=== PATIENT | male | born 1975 | race Two or more races ===

== ENCOUNTER 2021-05-12 14:25 | Inpatient (IN) | payer OTHER ==
[2021-05-12 15:18] LABS: Basophils # (A) 0.1 k/uL (0-0.2); Basophils % (A) 1 %; Eosinophils # (A) 0.2 k/uL (0-0.7); Eosinophils % (A) 2 %; HCT 44.7 % (39.0-53.0); HGB 15.5 gm/dL (13.0-17.5); Lymphocytes # (A) 1.8 k/uL (1.0-4.8); Lymphocytes % (A) 20 %; MCH 31.9 pg (25.0-35.0); MCHC 34.6 g/dL (31.0-37.0); MCV 92.2 fL (80.0-100.0); Mean Platelet Volume 8.8; Monocytes # (A) 0.4 k/uL (0-1.0); Monocytes % (A) 5 %; Neutrophils # (A) 6.3 k/uL (1.3-7.7); Neutrophils % (A) 72 %; Platelet Count 223 k/uL (150-450); RBC 4.85 m/uL (4.30-5.90); RDW 12.2 % (11.5-15.5); WBC 8.8 k/uL (3.8-10.6)
[2021-05-12 15:24] LABS: ALT 55 U/L (4-49); AST 36 U/L (17-59); African American GFR (CKD) >90 (>60 ml/min/1.73 sqM); Albumin 4.9 g/dL (3.5-5.0); Alkaline Phosphatase 92 U/L (38-126); Amylase 55 U/L (30-110); Anion Gap 12 mmol/L; Blood Urea Nitrogen 13 mg/dL (9-20); Calcium 9.9 mg/dL (8.4-10.2); Carbon Dioxide 25 mmol/L (22-30); Chloride 107 mmol/L (98-107); Glucose 95 mg/dL (74-99); Lipase 56 U/L (23-300); Non-African American GFR(CKD) >90 (>60 ml/min/1.73 sqM); Potassium 3.9 mmol/L (3.5-5.1); Sodium 144 mmol/L (137-145); Total Bilirubin 0.5 mg/dL (0.2-1.3); Total Protein 8.5 g/dL (6.3-8.2)
--- NOTE | 2021-05-12 15:34 | XR ---
EXAMINATION TYPE: XR KUB DATE OF EXAM: 05/12/2021 COMPARISON: None HISTORY: Abdomen pain TECHNIQUE: Upright abdomen FINDINGS: No free air is evident. No suspicious differential air-fluid levels are present. Nonspecifi c bowel gas is present. Small amount of bowel gas within the ascending colon region. Psoas margins are normal. Organomegaly is not evident. Phleboliths are present. IMPRESSION: 1. Nonspecific abdomen
[2021-05-12] MEDS ORDERED: KETOROLAC 15 MG/ML 1 ML VIAL IVP STA (16:50)
[2021-05-12] MEDS ORDERED: HYDROmorphone 0.5 MG/0.5 ML SYRINGE IVP STA (16:50)
[2021-05-12] MEDS ORDERED: SODIUM CHLORIDE 0.9% 1,000 ML IV ONE (16:50)
--- NOTE | 2021-05-12 17:44 | ED ---
Abdominal Pain HPI - General Chief Complaint: Abdominal Pain Stated Complaint: chest pain & hernia Time Seen by Provider: 05/12/21 16:25 Source: patient, RN notes reviewed Mode of arrival: wheelchair Limitations: no limitations - History of Present Illness Initial Comments: This a 46-year-old male presents emergency from chief complaint abdominal pain, right groin pain. Patient states that he's had pain for a while but states that he an ultrasound ordered by his PCP and told that there was no hernia or issues. He states pain is now. Again worse appointment was unbearable today. Patient states he had a bowel movement today no significant melena hematochezia constipation or diarrhea no dysuria no hematuria no prior abdominal surgeries. He states her some swelling right lower quadrant. - Related Data Home Medications Medication Instructions Recorded Confirmed Allopurinol [Zyloprim] 100 mg PO DAILY 05/12/21 05/12/21 Allergies Allergy/AdvReac Type Severity Reaction Status Date / Time No Known Allergies Allergy Verified 05/12/21 17:12 Review of Systems ROS Statement: Those systems with pertinent positive or pertinent negative responses have been documented in the HPI. ROS Other: All systems not noted in ROS Statement are negative. Past Medical History Past Medical History: No Reported History History of Any Multi-Drug Resistant Organisms: None Reported Past Surgical History: No Surgical Hx Reported Smoking Status: Never smoker Past Alcohol Use History: None Reported Past Drug Use History: None Reported General Exam Limitations: no limitations General appearance: alert, in no apparent distress Head exam: Present: atraumatic, normocephalic, normal inspection Eye exam: Present: normal appearance, PERRL, EOMI. Absent: scleral icterus, conjunctival injection, periorbital swelling ENT exam: Present: normal exam, normal oropharynx, mucous membranes moist, TM's normal bilaterally Neck exam: Present: normal inspection, full ROM. Absent: tenderness, meningis mus, lymphadenopathy Respiratory exam: Present: normal lung sounds bilaterally. Absent: respiratory distress, wheezes, rales, rhonchi, stridor Cardiovascular Exam: Present: regular rate, normal rhythm, normal heart sounds. Absent: systolic murmur, diastolic murmur, rubs, gallop, clicks Course Vital Signs 05/12/21 05/12/21 05/12/21 14:27 17:18 18:26 Temperature 97.9 F Pulse Rate 105 H 78 71 Respiratory 20 18 20 Rate Blood Pressure 191/151 171/117 149/105 O2 Sat by Pulse 99 98 96 Oximetry Medical Decision Making - Medical Decision Making 46 present for right-sided abdominal pain. Patient's found to have incarcerated inguinal hernia and partial mechanical small bowel obstruction on CT I was able to reduce the hernia though it is sliding. Patient remains to be in some discomfort. I did discuss the case with Dr. Delgado accepts admission overnight for observation. - Lab Data Result diagrams: 05/12/21 14:48 05/12/21 14:48 Lab Results 05/12/21 05/12/21 05/12/21 Range/Units 14:48 14:48 14:48 WBC 8.8 (3.8-10.6) k/uL RBC 4.85 (4.30-5.90) m/uL Hgb 15.5 (13.0-17.5) gm/dL Hct 44.7 (39.0-53.0) % MCV 92.2 (80.0-100.0) fL MCH 31.9 (25.0-35.0) pg MCHC 34.6 (31.0-37.0) g/dL RDW 12.2 (11.5-15.5) % Plt Count 223 (150-450) k/uL MPV 8.8 Neutrophils % 72 % Lymphocytes % 20 % Monocytes % 5 % Eosinophils % 2 % Basophils % 1 % Neutrophils # 6.3 (1.3-7.7) k/uL Lymphocytes # 1.8 (1.0-4.8) k/uL Monocytes # 0.4 (0-1.0) k/uL Eosinophils # 0.2 (0-0.7) k/uL Basophils # 0.1 (0-0.2) k/uL Sodium 144 (137-145) mmol/L Potassium 3.9 (3.5-5.1) mmol/L Chloride 107 (98-107) mmol/L Carbon Dioxide 25 (22-30) mmol/L Anion Gap 12 mmol/L BUN 13 (9-20) mg/dL Creatinine 0.99 (0.66-1.25) mg/dL Est GFR (CKD-EPI)AfAm >90 (>60 ml/min/1.73 sqM) Est GFR (CKD-EPI)NonAf >90 (>60 ml/min/1.73 sqM) Glucose 95 (74-99) mg/dL Calcium 9.9 (8.4-10.2) mg/dL Total Bilirubin 0.5 (0.2-1.3) mg/dL AST 36 (17-59) U/L ALT 55 H (4-49) U/L Alkaline Phosphatase 92 (38-126) U/L Troponin I <0.012 (0.000-0.034) ng/mL Total Protein 8.5 H (6.3-8.2) g/dL Albumin 4.9 (3.5-5.0) g/dL Amylase 55 (30-110) U/L Lipase 56 (23-300) U/L Disposition Clinical Impression: Partial obstruction of small intestine, Right inguinal hernia Disposition: ADMITTED IP TO THIS HOSP Condition: Fair Referrals: Kwame Lares MD [Primary Care Provider] - 1-2 days
--- NOTE | 2021-05-12 18:06 | CT ---
EXAMINATION TYPE: CT abdomen pelvis w con DATE OF EXAM: 05/12/2021 COMPARISON: None HISTORY: Right sided groin pain. CT DLP: 1891.8 mGycm Automated exposure control for dose reduction was used. CONTRAST: Performed with IV Contrast, patient injected with 100ml mL of Isovue 300. Images obtained from the diaphragm to the floor the pelvis with IV contrast. The lung bases are clear. There is no pleural effusion. There is some fatty infiltration of the liver . Heart size is normal. There is no pericardial effusion. Gallbladder is intact. Spleen is intact. There is no pancreatic mass. The stomach appears normal. There is no adrenal mass. Kidneys show satisfactory contrast opacification. There is no hydronephrosi s. Delayed images show normal renal excretion. There is 2 cm cortical cyst medial left kidney. There is no retroperitoneal adenopathy. There is large right inguinal hernia that contains small bow el. There is mild dilation of the small bowel in the right lower quadrant up to 3.2 cm. Hernia is prashanth ewhat incarcerated. Appendix is posterior and appears normal. Bladder distends smoothly. There is no free fluid in the pelvis. There is no evidence of a pelvic mass. There is no mesenteric edema. There is no ascites or free air. Lumbar vertebra have normal alignment. There is no compression fracture. Bony pelvis is intact. Hip joints are intact. IMPRESSION: Incarcerated right inguinal hernia with partial mechanical distal small bowel obstruction.
[2021-05-12] MEDS ORDERED: HYDROmorphone 1 MG/ML 1 ML SYRINGE IVP PRN (18:47)
[2021-05-12] MEDS ORDERED: NALOXONE 0.4 MG/ML 1 ML VIAL IV PRN (18:47)
[2021-05-12] MEDS ORDERED: HYDROmorphone 0.5 MG/0.5 ML SYRINGE IVP PRN (18:47)
[2021-05-12] MEDS ORDERED: ONDANSETRON 4 MG/2 ML VIAL IVP PRN (18:47)
[2021-05-12 19:22] LABS: Appearance,Urine Clear (Clear); Bilirubin,Urine Negative (Negative); Blood,Urine Negative (Negative); Color,Urine Yellow; Glucose,Urine (UA) Negative (Negative); Ketones,Urine Trace (Negative); Leukocyte Esterase,Urine Negative (Negative); Nitrite,Urine Negative (Negative); PH, Urine 5.5 (5.0-8.0); Protein,Urine Negative (Negative); Urobilinogen,Urine <2.0 mg/dL (<2.0)
[2021-05-12 19:24] LABS: Specific Gravity,Urine 1.046 (1.001-1.035)
[2021-05-12] MEDS ORDERED: hydrALAZINE HCL 20 MG/ML 1 ML VIAL IVP STA (20:01)
[2021-05-12] MEDS: SODIUM CHLORIDE 0.9% 1,000 ML IV SCH (20:53)
[2021-05-12] MEDS ORDERED: ENALAPRILAT 1.25 MG/ML 1 ML VIAL IVP STA (21:28)
[2021-05-13] MEDS: PANTOPRAZOLE 40 MG/10 ML VIAL IV SCH (07:23)
[2021-05-13] MEDS: SODIUM CHLORIDE 0.9% 1,000 ML IV SCH (07:23)
--- NOTE | 2021-05-13 09:41 | P.GSHP ---
History of Present Illness H&P Date: 05/13/21 CHIEF COMPLAINT: Abdominal pain HISTORY OF PRESENT ILLNESS: This is a 46-year-old male who has been dealing with right groin pain for about a week. He started to have mid abdominal pain yesterday. The pain became significantly worse and brought into the hospital for further evaluation and treatment. He also has been coughing which she feels may have contributed to the worsening of his hernia. Patient had a computed tomography scan of abdomen and pelvis completed showing evidence of an incar cerated right inguinal hernia with mechanical distal small bowel obstruction. Hernia reduced in the ER. Patient had significant improvement in his pain after reduction. He denies any nausea or vomiting. Denies any difficulty with bowel movements. He has been having flatus. Denies any fever chills or sweats. Denies any cardiac history. Denies any prior abdominal surgeries. He did have elevated blood pressure on admission and required a dose of IV Vasotec. He was having significant pain at that time. PAST MEDICAL HISTORY: See list. PAST SURGICAL HISTORY: See list. MEDICATIONS: See list. ALLERGIES: See list. SOCIAL HISTORY: No illicit drug use. REVIEW OF SYSTEMS: CONSTITUTIONAL: Denies fever or chills. HEENT: Denies blurred vision, vision changes, or eye pain. Denies hemoptysis CARDIOVASCULAR: Denies chest pain or pressure. RESPIRATORY: No shortness of breath. GASTROINTESTINAL: See HPI for pertinent findings HEMATOLOGIC: Denies bleeding disorders. GENITOURINARY: Denies any blood in urine or increased urinary frequency. SKIN: Denies pruitis. Denies rash. PHYSICAL EXAM: VITAL SIGNS: Reviewed GENERAL: Well-developed in no acute distress. HEENT: No sclera icterus. Extraocular movements grossly intact. Moist buccal mucosa. Head is atraumatic, normocephalic. No nasal drainage. ABDOMEN: Soft. Nondistended. Unable to appreciate right inguinal hernia. H ernia have been reduced in ER. Patient does have minimal tenderness with palpation in the area above the right inguinal canal NEUROLOGIC: Alert and oriented. Cranial nerves II through XII grossly intact. LABORATORY DATA: WBC 8.8 Hgb 15.5 platelets 223 Sodium 144 potassium 3.9 creatinine 0.99 COVID-19 not detected IMAGING: Computed tomography scan abdomen and pelvis incarcerated right inguinal hernia with partial mechanical distal small bowel obstruction ASSESSMENT: 1. Right incarcerated inguinal hernia with partial mechanical small bowel obstruction. Hernia reduced in ER. PLAN: -Patient scheduled for open inguinal hernia repair today with Dr. Delgado -Keep patient nothing by mouth -Continue IV fluids -Continue pain medication as needed Physician Nail Welter note has been reviewed by physician. Signing provider agrees with the documented findings, assessment, and plan of care. Past Medical History Past Medical History: No Reported History History of Any Multi-Drug Resistant Organisms: None Reported Past Surgical History: No Surgical Hx Reported Smoking Status: Never smoker Past Alcohol Use History: None Reported Past Drug Use History: None Reported - Past Family History Mother Family Medical History: Hypertension Father History Unknown: Yes Additional Family Medical History / Comment(s): None. Medications and Allergies Home Medications Medication Instructions Recorded Confirmed Type Allopurinol [Zyloprim] 100 mg PO DAILY 05/12/21 05/12/21 History Allergies Allergy/AdvReac Type Severity Reaction Status Date / Time shellfish derived [Shellfish] AdvReac Swelling Verified 05/13/21 05:46 Surgical - Exam Vital Signs Temp Pulse Resp BP Pulse Ox 97.9 F 105 H 20 191/151 99 05/12/21 14:27 05/12/21 14:27 05/12/21 14:27 05/12/21 14:27 05/12/21 14:27 Results - Labs 05/12/21 14:48 05/12/21 14:48 Abnormal Lab Results - Last 24 Hours (Table) 05/12/21 05/12/21 Range/Units 14:48 18:53 ALT 55 H (4-49) U/L Total Protein 8.5 H (6.3-8.2) g/dL Ur Specific [place] 1.046 H (1.001-1.035) Urine Ketones Trace H (Negative) Diabetes panel 05/12/21 Range/Units 14:48 Sodium 144 (137-145) mmol/L Potassium 3.9 (3.5-5.1) mmol/L Chloride 107 (98-107) mmol/L Carbon Dioxide 25 (22-30) mmol/L BUN 13 (9-20) mg/dL Creatinine 0.99 (0.66-1.25) mg/dL Glucose 95 (74-99) mg/dL Calcium 9.9 (8.4-10.2) mg/dL AST 36 (17-59) U/L ALT 55 H (4-49) U/L Alkaline Phosphatase 92 (38-126) U/L Total Protein 8.5 H (6.3-8.2) g/dL Albumin 4.9 (3.5-5.0) g/dL Calcium panel 05/12/21 Range/Units 14:48 Calcium 9.9 (8.4-10.2) mg/dL Albumin 4.9 (3.5-5.0) g/dL Pituitary panel 05/12/21 Range/Units 14:48 Sodium 144 (137-145) mmol/L Potassium 3.9 (3.5-5.1) mmol/L Chloride 107 (98-107) mmol/L Carbon Dioxide 25 (22-30) mmol/L BUN 13 (9-20) mg/dL Creatinine 0.99 (0.66-1.25) mg/dL Glucose 95 (74-99) mg/dL Calcium 9.9 (8.4-10.2) mg/dL Adrenal panel 05/12/21 Range/Units 14:48 Sodium 144 (137-145) mmol/L Potassium 3.9 (3.5-5.1) mmol/L Chloride 107 (98-107) mmol/L Carbon Dioxide 25 (22-30) mmol/L BUN 13 (9-20) mg/dL Creatinine 0.99 (0.66-1.25) mg/dL Glucose 95 (74-99) mg/dL Calcium 9.9 (8.4-10.2) mg/dL Total Bilirubin 0.5 (0.2-1.3) mg/dL AST 36 (17-59) U/L ALT 55 H (4-49) U/L Alkaline Phosphatase 92 (38-126) U/L Total Protein 8.5 H (6.3-8.2) g/dL Albumin 4.9 (3.5-5.0) g/dL
[2021-05-13] MEDS ORDERED: IV FLUID CONTINUATION 1,000 ML IV ONE (12:53)
[2021-05-13] MEDS ORDERED: HEPARIN SODIUM,PORCINE/PF 5,000 UNIT/0.5 ML SYRINGE SQ ONE (13:12)
[2021-05-13] MEDS ORDERED: DEXAMETHASONE SOD PHOSPHATE 4 MG/ML 1 ML VIAL IV ONE (13:15)
[2021-05-13] MEDS ORDERED: ONDANSETRON 4 MG/2 ML VIAL IVP ONE (13:15)
[2021-05-13] MEDS ORDERED: MIDAZOLAM 2 MG/2 ML VIAL IV ONE (13:21)
--- NOTE | 2021-05-13 13:38 | P.ANPRN ---
Procedure Note - Anesthesia - Nerve Block Performed Right Fascia Iliaca Single Time Out Performed: Yes Date of Procedure: 05/13/21 Procedure Start Time: : Procedure Stop Time: : Location of Patient: PreOp Indication: Acute Post-Operative Pain, Requested by Surgeon Sedation Type: Sedate with meaningful contact maintained Preparation: Sterile Prep, Sterile Dressing Position: Prone Catheter: None Needle Types: Facet Needle Gauge: 20 Ultrasound used to visualize needle placement: Yes Ultrasound used to observe medication spread: Yes Injectate: 0.5% Ropivacaine (see comment for volume) (30 ml + decadron 4 mg) Blood Aspirated: No Pain Paresthesia on Injection Noted: No Resistance on Injection: Normal Image Stored and Saved: Yes Events: Uneventful and Well Tolerated
[2021-05-13] MEDS ORDERED: HEPARIN SODIUM,PORCINE 5,000 UNIT/ML 1 ML VIAL SQ ONE (14:05)
[2021-05-13] MEDS ORDERED: ceFAZolin 3 GM in SODIUM CHLORIDE 0.9% 100 ML IVPB ONE (14:15)
[2021-05-13] MEDS ORDERED: fentaNYL (PF) 50 MCG/ML 2 ML AMP ONE (14:32)
[2021-05-13] MEDS ORDERED: DEXAMETHASONE SOD PHOSPHATE 4 MG/ML 1 ML VIAL ONE (14:32)
[2021-05-13] MEDS ORDERED: MIDAZOLAM 2 MG/2 ML VIAL ONE (14:32)
[2021-05-13] MEDS ORDERED: GLYCOPYRROLATE 0.2 MG/ML 2 ML VIAL ONE (14:32)
[2021-05-13] MEDS ORDERED: HYDROmorphone (PF) 1 MG/ML ONE (14:32)
[2021-05-13] MEDS ORDERED: ROPIVACAINE 5 MG/ML 30 ML VIAL ONE (14:32)
[2021-05-13] MEDS ORDERED: LIDOCAINE 1% INJ 10MG/ML (20 ML MDV) ONE (14:32)
[2021-05-13] MEDS ORDERED: ROCURONIUM 10 MG/ML (5 ML VIAL) IV ONE (14:32)
[2021-05-13] MEDS ORDERED: SODIUM CHLORIDE 0.9% 50 ML with ceFAZolin 2,000 MG IV ONE ×2 (14:32)
[2021-05-13] MEDS ORDERED: NEOSTIGMINE 1 MG/ML 10 ML VIAL ONE (14:32)
[2021-05-13] MEDS ORDERED: SUCCINYLCHOLINE CHLORIDE 100 MG/5 ML SYR IV ONE (14:32)
[2021-05-13] MEDS ORDERED: PROPOFOL 10 MG/ML 20 ML VIAL IV ONE (14:32)
[2021-05-13] MEDS ORDERED: BUPIVACAIN-EPI 0.25%-1:200,000 30 ML VIAL SQ ONE (14:53)
--- NOTE | 2021-05-13 15:29 | P.OP ---
Date of Procedure: 05/13/21 Preoperative Diagnosis: Incarcerated right inguinal hernia Postoperative Diagnosis: Incarcerated right inguinal hernia Procedure(s) Performed: (Incarcerated right inguinal hernia Excision of cord lipoma Anesthesia: VIBHA Surgeon: Harpreet Delgado Estimated Blood Loss (ml): 10 Pathology: other (Cord lipoma) Condition: stable Disposition: PACU Description of Procedure: DESCRIPTION OF PROCEDURE: The patient was placed in the supine position after receiving adequate anesthesia. Patient's right groin groin was prepped and draped in the usual sterile fashion. A standard hernia incision was made and the subcutaneous tissues were divided with electrocautery. The fascia of the external oblique was exposed. A juan the fascia was made with #15 blade. The fascia was then opened with pair of Metzenbaum scissors. A Weitlaner retractor was placed in the wound and the cord structures were grasped and dissected free from the inguinal canal. A rubber Mica drain was placed around the cord structures. The cord lipoma was dissected free and sent to pathology. The hernial sac was seen on the anterior-medial portion of the cord and this was dissected free from the cord. The hernia sac was then invaginated to the peritoneal cavity. Using blunt finger dissection, the preperitoneal space was dissected and then the Prolene hernial mesh plug was placed into the prepared space. The inferior leaf was expanded. The superior leaf was secured to the pubic tubercle using 2-0 Prolene suture. The lateral portion of the superior leaf was incised and cords tied and secured to the transversalis fascia using 2-0 Prolene suture. Fascia of the external oblique was then closed using #0 Vicryl suture. The Mica drain was removed. The Scarpas fascia was then closed with 3-0 Vicryl suture and skin was closed with frank. The patient tolerated the procedure well.
[2021-05-13] MEDS ORDERED: SODIUM CHLORIDE 0.9% 1,000 ML IV ONE (15:52)
[2021-05-13] MEDS ORDERED: HYDROcodone/APAP 5-325MG 1 EACH TAB PO PRN (15:59)
[2021-05-14] MEDS: SODIUM CHLORIDE 0.9% 1,000 ML IV SCH ×2 (00:20→12:17)
[2021-05-14 03:30] VITALS: TEMP 98.4
[2021-05-14] MEDS: PANTOPRAZOLE 40 MG/10 ML VIAL IV SCH (07:35)
[2021-05-14] MEDS ORDERED: ENOXAPARIN 40 MG/0.4 ML SYRINGE SQ SCH (09:00)
[2021-05-14 09:42] VITALS: BP 133/84; PULSE 80; RESP 18
--- NOTE | 2021-05-14 11:13 | P.DS ---
Providers Date of admission: 05/12/21 18:48 Expected date of discharge: 05/14/21 Attending physician: Harpreet Delgado Primary care physician: Kwame [facility] Course: Discharge diagnosis 1. Incarcerated right inguinal hernia causing mechanical distal small bowel obstruction status post incarcerated right inguinal hernia repair and excision of cord lipoma Hospital course This is a 46-year-old male who has been dealing with right groin pain for about a week. He started to have mid abdominal pain yesterday. The pain became significantly worse and brought into the hospital for further evaluation and treatment. He also has been coughing which she feels may have contributed to the worsening of his hernia. Patient had a computed tomography scan of abdomen and pelvis completed showing evidence of an incarcerated right inguinal hernia with mechanical distal small bowel obstruction. Hernia reduced in the ER. Patient had significant improvement in his pain after reduction. Patient is status post incarcerated right inguinal hernia repair and excision of cord lipoma. He tolerated surgery well. Pain is controlled. He is tolerating diet. He is up and ambulating. He is having flatus. Denies any difficult to urinating. He is afebrile. He is stable for discharge. Please refer to chart for any further details. Physician Consulting Manager note has been reviewed by physician. Signing provider agrees with the documented findings, assessment, and plan of care. Patient Condition at Discharge: Stable Plan - Discharge Summary Discharge Rx Participant: Yes New Discharge Prescriptions: New HYDROcodone/APAP 5-325MG [Worth 5-325] 1 tab PO Q6HR PRN 3 Days #12 tab PRN Reason: Pain Docusate [Colace] 100 mg PO BID #30 capsule Continue Allopurinol [Zyloprim] 100 mg PO DAILY Discharge Medication List Allopurinol [Zyloprim] 100 mg PO DAILY 05/12/21 [History] Docusate [Colace] 100 mg PO BID #30 capsule 05/14/21 [Rx] HYDROcodone/APAP 5-325MG [Worth 5-325] 1 tab PO Q6HR PRN 3 Days #12 tab 05/14/21 [Rx] Follow up Appointment(s)/Referral(s): Aurora Morin NPC [REFERRING] - 1-2 Days Harpreet Delgado MD [STAFF PHYSICIAN] - 1 Week Patient Instructions/Handouts: Inguinal Hernia Repair (DC) Activity/Diet/Wound Care/Special Instructions: No driving while taking Worth No lifting over 10 pounds You may shower. No soaking or tub baths for 2 weeks Very light activity until you are reevaluated at your follow up appointment with your surgeon Discharge Disposition: HOME SELF-CARE
== END 2021-05-14 12:35 | disposition home or self-care (01) | DRG 354 ==
LOC: EC 14:25 → 4SSUR 18:48
PROVIDERS: ADMIT Surgery; ATTEND Surgery
PROC: 0WUF0JZ Supplement Abdominal Wall with Synthetic Substitute, Open Approach (ICD-10-PCS; principal; 2021-05-13 08:25)
PROC: 0VBF0ZZ Excision of Right Spermatic Cord, Open Approach (ICD-10-PCS; principal; 2021-05-13 08:25)
DX: K40.30 Unilateral inguinal hernia, with obstruction, without gangrene, not specified as recurrent (principal); K56.690 Other partial intestinal obstruction; D17.6 Benign lipomatous neoplasm of spermatic cord; Z79.899 Other long term (current) drug therapy; Z20.822 Contact with and (suspected) exposure to COVID-19; Z91.013 Allergy to seafood
CPT/HCPCS: 36415; 64999; 74018; 74177; 80053; 81003; 82150; 83605; 83690; 84484; 85025; 87635; 88304; 93005; 96361; 96374; 96375; 99285